=== PATIENT | female | born 1960 | race Caucasian/White ===

== ENCOUNTER → 2018-05-06 | Outpatient (CLI) | payer MEDICARE ==
[~2018-05-06] VITALS: Ht 149.9 cm; Wt 171.8 kg
[~2018-05-06] MED LIST: ASPIRIN 32325 MG/TAB PO; ATIVAN 0.50.5 MG/TAB PO; FLEXERIL 1010 MG/TAB PO; K-TAB20 PO; LASIX 40MG TABL40 MG PO; LEVEMIR100 U/ML SQ; LYRICA200 MG PO; MELATONIN5 M1 SL; PAXIL 20MG20 MG PO; ZESTRIL 10MG10 MG PO; ZOCOR 40MG40 MG PO
== END ==
LOC: COL.CARD 10:11
DX: Z01.810 Encounter for preprocedural cardiovascular examination (principal); I25.10 Atherosclerotic heart disease of native coronary artery without angina pectoris; Z53.9 Procedure and treatment not carried out, unspecified reason

== ENCOUNTER → 2018-06-21 | Outpatient (CLI) | payer MEDICARE ==
[~2018-06-21] VITALS: Ht 149.9 cm; Wt 172.0 kg
[2018-06-21 09:20] VITALS: BP 136/82; PULSE 83
[2018-06-21 11:56] VITALS: BP 127/65; PULSE 77
[2018-06-21 11:58] VITALS: BP 117/58; PULSE 94
[2018-06-21 11:59] VITALS: BP 131/64; PULSE 92
[2018-06-21 12:01] VITALS: BP 129/65; PULSE 86
[2018-06-21 12:02] VITALS: BP 128/60; PULSE 84
== END ==
LOC: COL.CARD 07:36
DX: Z01.818 Encounter for other preprocedural examination (principal); I25.10 Atherosclerotic heart disease of native coronary artery without angina pectoris; R07.89 Other chest pain; R06.02 Shortness of breath
CPT/HCPCS: A9502; J2785